=== PATIENT | male | born 1990 | race Caucasian/White ===

== ENCOUNTER 2023-11-28 13:23 | Outpatient (CLI) | payer MEDICAID, SELFPAY ==
--- NOTE | 2023-11-28 13:34 | USCV_ITS ---
Darell Arreola Age: 33 Gender: M : 1990 Exam Date: 11/28/2023 13:53 Ordering Phys: Anderson Flores Technologist: [place] [facility] [place]: septal hypertrophy BP: 126 / 73 HR: 72 Rhythm: Sinus Technical Quality: Adequate MEASUREMENTS (Male / Female) Normal Values 2D ECHO LV Diastolic Diameter PLAX 2.9 cm 4.2 - 5.9 / 3.9 - 5.3 cm IVS Diastolic Thickness 2.8 cm 0.6 - 1.0 / 0.6 - 0.9 cm IVS Systolic Thickness 3.2 cm LVPW Diastolic Thickness 1.2 cm 0.6 - 1.0 / 0.6 - 0.9 cm LVPW Systolic Thickness 1.4 cm LVOT Diameter 2.0 cm LV Ejection Fraction 2D Teich 68.1 % LV Ejection Fraction MOD 2C 76.8 % LV Ejection Fraction 2C AL 78.5 % LA Diameter 4.1 cm RA Systolic Volume 4C AL 32.9 ml RA Systolic Volume 4C MOD 31.5 ml Aorta at Sinotubular Diameter 2.6 cm IVC Diameter 1.8 cm M-MODE LA Ao Ratio MM 1.2 AV Cusp Separation MM 2.5 cm DOPPLER AV Peak Velocity 144.0 cm/s LVOT Peak Velocity 85.0 cm/s AV Area Cont Eq vti 2.3 cm squared AV Area Cont Eq pk 1.9 cm squared MV Peak Velocity 93.0 cm/s MV Area PHT 10.2 cm squared Mitral E to A Ratio 2.1 TR Peak Velocity 264.0 cm/s TR Peak Gradient 27.9 mmHg TV Peak E Velocity 148.0 cm/s FINDINGS Left Ventricle Technically limited quality echocardiogram because of poor ultrasonic windows. Left ventricle is normal in size. LV systolic function is normal with EF of 60-65%. No regional wall motion abnormalities are seen. Severe septal hypertrophy. Can not accurately assess diameter. Right Ventricle Normal in size and function Right Atrium Normal in size Left Atrium Normal in size Mitral Valve Structurally normal mitral valve. Mild mitral regurgitation. Aortic Valve Structurally normal aortic valve. LVOT gradients not elevated. No significant stenosis . Tricuspid Valve Insufficient TR jet to evaluate RVSP. Pulmonic Valve Not well-visualized Pericardium Normal Aorta Normal in size IVC Appears to be normal CONCLUSIONS LV systolic function is normal with EF of 60 to 65%. Severe septal hypertrophy. Inferolateral wall diameter cannot be accurately assessed however grossly it appears patient has asymmetric hypertrophy of the septum. Mild mitral regurgitation No comparison studies are available. Riky Mei MD (Electronically Signed) Final Date: 10 December 2023 13:32 S
== END 2023-11-28 13:24 | disposition home or self-care (01) ==
LOC: RAD 13:25
PROVIDERS: PCP Surgery; Visit Provider Nurse Practitioner Family
DX: I42.2 Other hypertrophic cardiomyopathy (principal); I34.0 Nonrheumatic mitral (valve) insufficiency; I51.7 Cardiomegaly
CPT/HCPCS: 93306